=== PATIENT | female | born 1965 | race Caucasian/White ===

== ENCOUNTER 2019-06-15 19:42 | Inpatient (IN) | payer BC, SELFPAY ==
[2019-06-15] MEDS ORDERED: Fentanyl 100 MCG/2 ML VIAL ONE (19:48)
[2019-06-15] MEDS ORDERED: fentaNYL Citrate/PF 2,000 MCG in Sodium Chloride 0.9% 60 ML IV SCH (19:51)
[2019-06-15 20:03] LABS: #Eosinphils 0.1 thou/uL (0.0-0.7); #Lymphocytes 1.8 thou/uL (1.20-3.40); #Monocytes 0.4 thou/uL (0.11-0.59); #Neutrophils 3.1 thou/uL (1.40-6.50); %Lymphocytes 32.8 % (21.0-51.0); %Monocytes 7.2 % (0.0-10.0); %Neutrophils 58.1 % (42.0-75.0); Hemoglobin 12.2 g/dL (12.0-16.0); Mean Corpuscular HGB CONC 34.2 g/dL (32.0-36.0); Mean Corpuscular Hemoglobin 30.8 pg (27.0-31.0); Mean Corpuscular Volume 90.1 fL (78.0-98.0); Mean Platelet Volume 7.8 fL (7.4-10.4); Platelet Count 207 thou/uL (130-400); RBC Distribution Width 12.7 % (11.5-14.5); Red Blood Cell (RBC) Count 3.98 mill/uL (4.20-5.40); White Blood Cell (WBC) Count 5.4 thou/uL (4.8-10.8)
[2019-06-15 20:06] LABS: Bilirubin Negative (Negative); Blood, Urine Negative (Negative); Clarity Clear (Clear); Glucose, Urine (Dipstick) Normal (Negative); Leukocyte Negative Leu/uL (Negative); Nitrite Negative (Negative); Protein, Urine (Dipstick) Negative (Neg-Trace); Urobilinogen Normal mg/dL (Less than 2)
--- NOTE | 2019-06-15 20:12 | RAD ---
PORTABLE CHEST: 06/15/19 HISTORY: Intubation. Overdose. Heart size and mediastinum are within normal limits. Linear atelectasis is seen in both lung bases. E ndotracheal and NG tubes are in satisfactory position. IMPRESSION: Endotracheal and NG tubes in satisfactory position. POS: [facility]
[2019-06-15 20:17] LABS: Cocaine Metabolite Screen Not Detected (NotDetected); Medtox Reader # READER 4; Methamphetamine Not Detected (NotDetected); Phencyclidine (PCP) Not Detected (NotDetected); THC/Cannabinoid Screen Not Detected (NotDetected)
[2019-06-15 20:18] LABS: Amphetamine Not Detected (NotDetected); Barbiturates Screen Not Detected (NotDetected); Benzodiazepine Screen Not Detected (NotDetected); Medtox Control Line Valid? VALID (VALID); Methadone Not Detected (NotDetected); Opiate Screen Detected (NotDetected); Oxycodone Screen Not Detected (NotDetected); Tricyclic Screen Not Detected (NotDetected)
[2019-06-15 20:21] LABS: Alcohol 267 mg/dL (Less than 10); Salicylate Less than 8.0 mg/dL (15.0-30.0)
[2019-06-15 20:22] LABS: Actual Bicarbonate (HCO3a) 17.3 mEq/L (22-28); Analyzer IN Cardio ER; Base Excess (BEa) -6.6 mEq/L (-2.0 to +3.0); Calcium, Ionized 1.05 mmol/L (1.12-1.30); Carboxyhemoglobin (COHb) 0.1 gm% (0.0-3.0); Hemoglobin (Hb) 12.7 g/dL (12.0-16.0); Potassium - ABG Lab 3.89 mmol/L (3.70-5.30); pH, Arterial 7.38 (7.35-7.45)
[2019-06-15 20:23] LABS: Puncture Site LRA
[2019-06-15 20:24] LABS: ALT (SGPT) 18 U/L (8-55); AST (SGOT) 19 U/L (5-34); Albumin 3.8 g/dL (3.5-5.0); Alkaline Phosphatase 56 U/L (40-110); Anion Gap 18 mmol/L (10-20); BUN (Urea Nitrogen) 8 mg/dL (9.8-20.1); Bilirubin, Total 0.2 mg/dL (0.2-1.2); Calc. Creatinine Clearance 0 mL/min (70-130); Calcium 7.9 mg/dL (7.8-10.44); Carbon Dioxide 18 mmol/L (22-29); Chloride 105 mmol/L (98-107); Estimated GFR-MDRD 88; Globulin 2.3 g/dL (2.4-3.5); Glucose 111 mg/dL (70-105); Protein, Total 6.1 g/dL (6.0-8.3); Sodium 137 mmol/L (136-145)
[2019-06-15] MEDS ORDERED: Norepinephrine 4 MG/4 ML VIAL ONE (20:33)
--- NOTE | 2019-06-15 21:12 | RAD ---
XR Chest 1 View Portable HISTORY: Drug overdose, line placement. COMPARISON: Exam done earlier today. FINDINGS: There is been interval placement of a right-sided central line, the catheter tip overlies t he right atrium. No signs of pneumothorax. No other interval change. IMPRESSION: Right-sided central line placement. No signs of pneumothorax.
--- NOTE | 2019-06-15 21:13 | CT ---
CT Brain WO Con HISTORY: Drug overdose. Altered mental status. COMPARISON: None. FINDINGS: The ventricular and cisternal system is within normal limits. There are no signs of intrace rebral hemorrhage or extra-axial fluid collections. The mastoid air cells are clear. There is bilateral ethmoid and maxillary sinus mucosal disease. IMPRESSION: No acute intracranial abnormalities.
[2019-06-15] MEDS ORDERED: Acetaminophen 650 MG Suppository PR PRN (23:02)
[2019-06-15] MEDS ORDERED: CCU Electrolyte Replacement 1 EACH FS ONE (23:02)
[2019-06-15] MEDS ORDERED: Ondansetron PF 4 MG/2 ML Vial IVP PRN (23:02)
[2019-06-15] MEDS ORDERED: CCU ELECTROLYTE REPLACEMENT PROTOCOL FS PRN (23:04)
[2019-06-15] MEDS ORDERED: Potassium Chloride 40 MEQ in Premix Bag 1 BAG IVPB PRN (23:04)
[2019-06-15] MEDS ORDERED: Magnesium 2 GM/50 ML 2 GM in Premix Bag 1 BAG IVPB PRN (23:04)
[2019-06-15] MEDS ORDERED: Magnesium Oxide 400 MG TAB PO PRN ×2 (23:04)
[2019-06-15] MEDS ORDERED: Potassium Phosphate 15 MMOL in Sodium Chloride 0.9% 250 ML 250 ML IV PRN (23:04)
[2019-06-15] MEDS ORDERED: PHOS-NAK 1 PKT PACK PO PRN ×2 (23:04)
[2019-06-15] MEDS ORDERED: Potassium Chloride 20 MEQ TAB PO PRN (23:04)
[2019-06-15] MEDS ORDERED: Potassium Phosphate 12 MMOL in Sodium Chloride 0.9% 250 ML 250 ML IV PRN (23:04)
[2019-06-15] MEDS ORDERED: Potassium Phosphate 9 MMOL in Sodium Chloride 0.9% 100 ML IVPB PRN (23:04)
[2019-06-15] MEDS ORDERED: Potassium Chloride 40 MEQ in Sodium Chloride 0.9% 250 ML 250 ML IVPB PRN (23:04)
[2019-06-15] MEDS ORDERED: Midazolam HCl 5 mg/ml Vial ONE (23:08)
[2019-06-15] MEDS: Sodium Chloride 0.9% 1,000 ML IV SCH (23:30)
[2019-06-15] MEDS ORDERED: Lorazepam 2 MG/ML VIAL SLOW IVP PRN (23:47)
[2019-06-15 23:54] VITALS: BMI 28.3
[2019-06-16 00:38] LABS: Troponin I Less than 0.010 ng/mL (< 0.028)
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
[2019-06-16 03:06] LABS: Troponin I Less than 0.010 ng/mL (< 0.028)
[2019-06-16 05:06] LABS: Band 4 % (5-11); Eosinophils 1 % (0-10); Hemoglobin 12.1 g/dL (12.0-16.0); Lymphocytes 13 % (21-51); MDiff Complete? YES; Mean Corpuscular HGB CONC 33.9 g/dL (32.0-36.0); Mean Corpuscular Hemoglobin 30.6 pg (27.0-31.0); Mean Corpuscular Volume 90.5 fL (78.0-98.0); Mean Platelet Volume 7.7 fL (7.4-10.4); Monocytes 8 % (0-10); Neutrophil 72 % (42-75); Platelet Count 225 thou/uL (130-400); Platelet Morphology Comment Appears Adequate; RBC Distribution Width 12.8 % (11.5-14.5); RBC Morphology Normal; Reactive Lymphocytes 2 % (0-10); Red Blood Cell (RBC) Count 3.96 mill/uL (4.20-5.40); White Blood Cell (WBC) Count 10.6 thou/uL (4.8-10.8)
[2019-06-16 05:21] LABS: ALT (SGPT) 16 U/L (8-55); AST (SGOT) 16 U/L (5-34); Albumin 3.9 g/dL (3.5-5.0); Alkaline Phosphatase 60 U/L (40-110); Anion Gap 15 mmol/L (10-20); BUN (Urea Nitrogen) 7 mg/dL (9.8-20.1); Bilirubin, Total 0.6 mg/dL (0.2-1.2); Calc. Creatinine Clearance 126 mL/min (70-130); Calcium 8.4 mg/dL (7.8-10.44); Carbon Dioxide 21 mmol/L (22-29); Chloride 105 mmol/L (98-107); Estimated GFR-MDRD Greater than 90; Globulin 2.3 g/dL (2.4-3.5); Glucose 100 mg/dL (70-105); Magnesium 1.5 mg/dL (1.6-2.6); Protein, Total 6.2 g/dL (6.0-8.3); Sodium 137 mmol/L (136-145)
[2019-06-16 06:51] LABS: Actual Bicarbonate (HCO3a) 21.3 mEq/L (22-28); CO2 Tension 35.5 mmHg (35.0-45.0); Calcium, Ionized 1.13 mmol/L (1.12-1.30); Hemoglobin (Hb) 12.4 g/dL (12.0-16.0); O2 Tension (PaO2) 101.8 mmHg (80.0-100.0); Potassium - ABG Lab 3.85 mmol/L (3.70-5.30)
[2019-06-16 07:13] LABS: Puncture Site RRAD
[2019-06-16 07:14] LABS: ALV-art Gradient 139.025 (0-20)
[2019-06-16] MEDS: Famotidine/PF 20 mg/2ml Vial SLOW IVP SCH ×2 (07:43→20:52)
--- NOTE | 2019-06-16 07:43 | RAD ---
XR Chest 1 View Portable History: Respiratory failure Comparison: Chest radiograph prior day Findings: Central venous catheter tip is in similar position projecting over the right atrium. Enteri c tube tip below diaphragm although out of field of view. Endotracheal tube tip sits at the level of the clavicles. Atelectatic changes lung bases. No pneumothorax. No significant effusion. No acute osseous abnormalit y. Impression: No acute intrathoracic abnormality.
[2019-06-16] MEDS: Sodium Chloride 0.9% 1,000 ML IV SCH (07:46)
[2019-06-16] MEDS ORDERED: DC Sedation Protocol FS SCH (08:15)
--- NOTE | 2019-06-16 08:38 | CON ---
DATE OF CONSULTATION: 06/16/2019 CONSULTING PHYSICIAN: Everton Dominguez. REASON FOR CONSULTATION: Acute respiratory failure related to intoxication. Following encompasses 35 minutes critical care time. HISTORY OF PRESENT ILLNESS: The patient is a 53-year-old female, who was transferred to the emergency room by EMS. She apparently had taken 4-8 hydrocodone pills belonging to her in addition to drinking alcohol. She was intubated because she was minimally responsive. Now, she is fully awake, alert, and follows commands. PAST MEDICAL HISTORY: Depression. PAST SURGICAL HISTORY: Hysterectomy and . MEDICATIONS: Prior to admission, none. ALLERGIES: NONE. FAMILY MEDICAL HISTORY: Unremarkable. SOCIAL HISTORY: Drinks alcohol daily. Does not smoke. Does not use illicit drugs. REVIEW OF SYSTEMS: Twelve-point review of systems is otherwise negative. PHYSICAL EXAMINATION: VITAL SIGNS: Temperature 99.8, pulse 109, blood pressure 130/79, O2 saturation 98%, intake 586, output 595. HEENT: Unremarkable. NECK: No adenopathy or JVD. CHEST: Clear to auscultation. CARDIAC: S1-S2 regular without murmur. ABDOMEN: Soft, nontender and nondistended. EXTREMITIES: No clubbing, cyanosis, or edema. NEUROLOGIC: Nonfocal. She moves all 4 extremities without difficulty. IMAGING STUDIES: Chest x-ray shows no mass, effusion, or infiltrate. LABORATORY DATA: PH 7.40, pCO2 35, PO2 102. White blood cell count 10.6, hematocrit 35.8, and platelet count 225. Sodium 137, potassium 4, chloride 105, CO2 21, BUN 7, creatinine 0.6, glucose 100. ASSESSMENT: 1. Status post overdose, question of intent. 2. Respiratory failure, requiring mechanical ventilation. PLAN: 1. Extubate and observe. 2. May need psychiatric disposition prior to discharge. Job ID: [id number]
[2019-06-16] MEDS ORDERED: FLU VACC QS2019-20(6MOS UP)/PF 60 MCG/0.5 ML SYRINGE IM ONE (09:00)
--- NOTE | 2019-06-16 09:35 | PDOC.HOSPP ---
- Subjective Encounter Date: 06/16/19 Encounter Time: 09:34 Subjective: Patient seen and examined. No new complaints. No overnight events. Pt extubated and at bedside. hoarse voice after the intubation. No complaints. remain depressed. - Objective Vital Signs & Weight: Vital Signs (12 hours) Temp Pulse Resp Pulse Ox 06/16/19 08:00 99.5 F 14 06/16/19 07:11 114 H 06/16/19 06:00 14 06/16/19 04:00 99.8 F H 12 06/16/19 03:37 99 06/16/19 02:00 16 06/16/19 00:00 12 06/15/19 23:22 97.8 F Weight Admit Weight 180 lb 15.992 oz Weight 180 lb 15.992 oz Most Recent Monitor Data Heart Rate from ECG 121 NIBP 152/97 NIBP BP-Mean 115 Respiration from ECG 17 SpO2 96 I&O: 06/15/19 06/16/19 06/17/19 06:59 06:59 05:59 Intake Total 586 0 Output Total 595 275 Balance -9 -275 Result Diagrams: 06/16/19 04:15 06/16/19 04:15 Hospitalist ROS - Medication Medications: Active Medications Generic Name Dose Route Start Last Admin Trade Name Freq PRN Reason Stop Dose Admin Famotidine 20 mg 06/16/19 09:00 06/16/19 07:43 Pepcid SLOW IVP 20 mg Q12HR ANTONIA Administration Sodium Chloride 1,000 mls @ 100 mls/hr 06/15/19 23:02 06/16/19 07:46 Normal Saline 0.9% IV 1,000 mls .Q10H ANTONIA Administration Magnesium Sulfate 1 gm/ Sodium 102 mls @ 102 mls/hr 06/15/19 23:04 06/16/19 07:47 Chloride IV 102 mls PRN PRN Administration MAG LEVEL 1.4 - 2.0 - Exam General Appearance: NAD Eye: anicteric sclera ENT: normocephalic atraumatic, moist mucosa Neck: supple Heart - other findings: s1s2 heard Respiratory: CTAB Gastrointestinal: soft Skin: normal turgor Neurological: no weakness Psychiatric - other findings: depressed Hosp A/P (1) Overdose Code(s): T50.901A - POISONING BY UNSP DRUG/MEDS/BIOL SUBST, ACCIDENTAL, INIT Status: Acute (2) Alcohol abuse Code(s): F10.10 - ALCOHOL ABUSE, UNCOMPLICATED Status: Acute (3) Depression Code(s): F32.9 - MAJOR DEPRESSIVE DISORDER, SINGLE EPISODE, UNSPECIFIED Status : Acute (4) Suicidal deliberate poisoning Code(s): T65.92XA - TOXIC EFFECT OF UNSP SUBSTANCE, INTENTIONAL SELF-HARM, INIT Status: Acute (5) Toxic encephalopathy Code(s): G92 - TOXIC ENCEPHALOPATHY Status: Acute (6) Respiratory failure with hypoxia Code(s): J96.91 - RESPIRATORY FAILURE, UNSPECIFIED WITH HYPOXIA Status: Acute - Plan old records reviewed/req, plan discussed w/ family, mental health social worker extubated this am transfer to floor [facility] consult No medical history reported and no home meds. supportive care
[2019-06-17] MEDS: Famotidine/PF 20 mg/2ml Vial SLOW IVP SCH ×2 (08:33→21:16)
--- NOTE | 2019-06-17 15:21 | PRG ---
DATE OF SERVICE: 06/17/2019 SUBJECTIVE: The patient is seen at bedside. Denies any complaint. Denies any chest pain, shortness of breath, headache, dizziness, nausea, vomiting. OBJECTIVE: VITAL SIGNS: Temperature 97.6, pulse 97, respirations 18, oxygen saturation 94%, and blood pressure 106/65. GENERAL: The patient is alert, awake, in no distress. NECK: Supple. No JVD. No lymphadenopathy. Right IJ central line is present. CHEST: Normal vesicular breathing. ABDOMEN: Soft. EXTREMITIES: Negative edema of feet. LABORATORY DATA: Urine toxicology positive for opiates. IMPRESSION: 1. Acute respiratory failure, most likely secondary to drug overdose with suicidal intent. Currently, the patient is status post extubation, transfer on the floor, saturating well on room air. No acute issues. We will discontinue central line. [facility] consulted for further evaluation. 2. History of alcohol abuse. 3. History of depression. The patient pending [facility] evaluation for further plan of action. 4. Deep venous thrombosis and gastrointestinal prophylaxis. 5. Plan discussed with the patient and nursing staff. Job ID: [id number]
[2019-06-17 20:20] VITALS: BP 160/89; TEMP 96.2
== END 2019-06-18 03:06 | DRG 917 ==
LOC: ERS 19:42 → CCU 22:38 → T4-B 06-16 12:46
PROVIDERS: ADMIT Family Medicine; ATTEND Family Medicine
PROC: 02HV33Z Insertion of Infusion Device into Superior Vena Cava, Percutaneous Approach (ICD-10-PCS; principal; 2019-06-15)
PROC: 5A1935Z Respiratory Ventilation, Less than 24 Consecutive Hours (ICD-10-PCS; 2019-06-15)
PROC: 3E033XZ Introduction of Vasopressor into Peripheral Vein, Percutaneous Approach (ICD-10-PCS; 2019-06-15)
DX: T40.2X2A Poisoning by other opioids, intentional self-harm, initial encounter (principal); G92 Toxic encephalopathy; J96.01 Acute respiratory failure with hypoxia; R40.2122 Coma scale, eyes open, to pain, at arrival to emergency department; R40.2312 Coma scale, best motor response, none, at arrival to emergency department; R40.2212 Coma scale, best verbal response, none, at arrival to emergency department; T51.0X2A Toxic effect of ethanol, intentional self-harm, initial encounter; Y90.8 Blood alcohol level of 240 mg/100 ml or more; F32.9 Major depressive disorder, single episode, unspecified; F10.10 Alcohol abuse, uncomplicated; Z90.710 Acquired absence of both cervix and uterus; I95.9 Hypotension, unspecified
CPT/HCPCS: 31500; 36415; 36556; 51702; 70450; 71045; 80053; 80306; 80307; 81003; 82805; 83735; 84443; 84484; 85007; 85025; 85027; 93005; 94003; 94760; 96365; 96366; 96368; 96374; 96375; 96376; J2250; J2405; J3010; J3475; J3490; S0028